=== PATIENT | female | born 1985 | race Caucasian/White ===

== ENCOUNTER 2021-03-28 01:51 | Emergency (ER) | payer SELFPAY ==
[~2021-03-28] VITALS: Ht 157.5 cm; Wt 55.7 kg
[~2021-03-28 01:51] MED LIST: PREN-127
[2021-03-28 02:03] VITALS: BP 117/83
[2021-03-28] MEDS ORDERED: AMOXICILLIN/POTASSIUM CLAVULANATE 875/125MG TAB PO ONE (02:45)
[2021-03-28] MEDS ORDERED: HYDROCODONE/ACETAMINOPHEN 5/325MG TABLET PO ONE (04:45)
[2021-03-28] MEDS ORDERED: IBUP-2030 MT (04:46)
[2021-03-28] MEDS ORDERED: AMOX-424 MT (04:46)
== END 2021-03-28 05:11 | disposition home or self-care (01) ==
LOC: ER 01:51
DX: K08.89 Other specified disorders of teeth and supporting structures (principal); Z90.710 Acquired absence of both cervix and uterus
CPT/HCPCS: 81025; 99283